=== PATIENT | female | born 1970 | race Hispanic/Latino ===

== ENCOUNTER 2016-10-26 08:16 | Emergency (ER) | payer MEDICAID, OTHER ==
[2016-10-26 08:16] VITALS: BMI 27.3
[2016-10-26 09:10] LABS: RBC URINE 1 /hpf (0-3); URINE BACTERIA RARE (<OCC); URINE BILIRUBIN NEGATIVE (NEGATIVE); URINE BLOOD NEGATIVE (NEGATIVE); URINE COLOR Yellow (YELLOW); URINE GLUCOSE (UA) NORMAL (Normal); URINE KETONE 1+ mg/dL (NEGATIVE); URINE LEUKOCYTE ESTERASE NEG Leu/uL (Negative); URINE PROTEIN NEGATIVE (NEGATIVE); URINE UROBILINOGEN NORMAL mg/dL (0.2-1.0); WBC URINE < 1 /hpf (0-5)
[2016-10-26] MEDS ORDERED: Sodium Chloride 0.9% 1,000 ML IV STA (10:06)
[2016-10-26] MEDS ORDERED: Sodium Chloride 0.9% 1,000 ML ONE (10:17)
[2016-10-26 10:39] LABS: BASO # 0.1 K/uL (0.0-0.2); BASO % 0.9 % (0.0-2.0); EOS # 0.1 K/uL (0.0-0.7); EOS % 1.2 % (0.0-4.0); HEMATOCRIT 40.5 % (34.0-47.0); LYMPH # 1.9 K/uL (1.0-4.3); LYMPH % 24.5 % (20.0-40.0); MEAN CELL VOLUME 87.6 fL (81.0-99.0); MEAN CORPUSCULAR HEMOGLOBIN 28.9 pg (27.0-31.0); MEAN PLATELET VOLUME 9.8 fL (7.2-11.7); MONO # 0.4 K/uL (0.0-0.8); MONO % 5.7 % (0.0-10.0); RED CELL DISTRIBUTION WIDTH 13.6 % (11.5-14.5); WHITE BLOOD COUNT 7.8 K/uL (4.8-10.8)
[2016-10-26 11:41] LABS: CHLORIDE 102 mmol/L (98-107); SODIUM 135 mmol/L (132-148)
[2016-10-26 11:43] LABS: BILIRUBIN,TOTAL 0.5 mg/dL (0.2-1.3); CARBON DIOXIDE 22 mmol/L (22-30); GFR AFRICAN-AMERICAN > 60
[2016-10-26 11:44] LABS: ALB/GLOB RATIO 1.6 (1.0-2.1); ALKALINE PHOSPHATASE 72 U/L (38-126); ALT/SGPT 29 U/L (9-52); AST/SGOT 17 U/L (14-36); BLOOD UREA NITROGEN 10 mg/dL (7-17); CALCIUM 8.3 mg/dl (8.6-10.4); GLUCOSE,RANDOM 85 mg/dL (65-105); TOTAL PROTEIN 6.7 g/dL (6.3-8.3)
--- NOTE | 2016-10-26 12:13 | US ---
Pelvic ultrasound History: Pelvic pain. Comparison: None available. Technique: Multi-echo multiplanar sequences were performed through pelvis utilizing transabdominal and transvaginal techniques. Findings: Uterus: 10.4 x 4.7 x 5.9 centimeters. Anteverted. Endometrium measures 7 millimeters. Cervix measures 3.2 centimeters. No free fluid in the pelvic cul-de-sac. Trace free fluid noted within the cervical canal. Right ovary: 3.6 x 2.5 x 3.6 centimeters. Normal flow. Hypoechoic cyst measuring 2.2 x 2.6 x 2.3 centimeters. Left ovary: 2.5 x 2.0 x 2.4 centimeters. Normal flow. status unknown. Impression: 2.4 centimeter right ovarian cyst. Trace free fluid noted within the cervical canal.
--- NOTE | 2016-10-26 12:21 | C.PDOC ---
History Of Present Illness 46 yr old female presents to the ER with complaints of low abdominal pain for the past 5 weeks. Patient states she has had multiple PID in the past and this feels similar, however the pain got worse last week. Patient states she also had some white discharge and went to go see her PMD who gave her Diflucan and recommended to follow up with SENIOR SQL SERVER DBA but failed to do so. Patient states the pain is getting worse, radiating to back and now feels weak. Patient denies fever, chest pain, SOB, nausea, vomiting, diarrhea, constipation or numbness. Time Seen by Provider: 10/26/16 08:40 Chief Complaint (Nursing): Abdominal Pain History Per: Patient History/Exam Limitations: no limitations Onset/Duration Of Symptoms: Days (5 weeks) Past Medical History Reviewed: Historical Data, Nursing Documentation, Vital Signs Vital Signs: Last Vital Signs Temp 98.3 F 10/26/16 16:50 Pulse 69 10/26/16 16:50 Resp 17 10/26/16 16:50 BP 114/83 10/26/16 16:50 Pulse Ox 100 10/26/16 18:44 - Medical History PMH: Anxiety, COPD, Post Traumatic Stress Disorder Family History: States: No Known Family Hx - Social History Hx Tobacco Use: No Hx Alcohol Use: Yes (''Occassionally'') Hx Substance Use: No (''Past abuse of Xanax'') - Immunization History Hx Tetanus Toxoid Vaccination: Yes Hx Influenza Vaccination: No Hx Pneumococcal Vaccination: No Review Of Systems Except As Marked, All Systems Reviewed And Found Negative. Constitutional: Positive for: Weakness. Negative for: Fever Cardiovascular: Negative for: Chest Pain Respiratory: Negative for: Shortness of Breath Gastrointestinal: Positive for: Abdominal Pain (Low abdominal pain ). Negative for: Nausea, Vomiting, Diarrhea, Constipation Genitourinary: Positive for: Vaginal Discharge (White) Musculoskeletal: Positive for: Back Pain (Radiating pain to the back) Neurological: Negative for: Numbness Physical Exam - Physical Exam Appears: Non-toxic, No Acute Distress Skin: Warm, Dry, No Rash Head: Atraumatic, Normacephalic Oral Mucosa: Moist Chest: Symmetrical, No Tenderness Cardiovascular: Rhythm Regular, No Murmur Respiratory: Normal Breath Sounds, No Rales, No Wheezing Gastrointestinal/Abdominal: Soft, Tenderness (Lower abdominal tenderness), Distention (Mildly ), No Guarding, No Rebound Pelvic: Normal Speculum Exam, No Vaginal Discharge, Other (No cervicitis. On manual exam, patient is tender. ) Extremity: Normal ROM, No Swelling Neurological/Psych: Oriented x3, Normal Speech, Normal Motor ED Course And Treatment - Laboratory Results Result Diagrams: 10/26/16 10:34 10/26/16 11:29 O2 Sat by Pulse Oximetry: 100 - CT Scan/US US - Pelvis/Transvaginal Other Rad Studies (CT/US): Read By Radiologist, Radiology Report Reviewed CT/US Interpretation: Pelvic ultrasound. History: Pelvic pain. Comparison: None available. Technique: Multi-echo multiplanar sequences were performed through pelvis utilizing transabdominal and transvaginal techniques. Findings: Uterus: 10.4 x 4.7 x 5.9 centimeters. Anteverted. Endometrium measures 7 millimeters. Cervix measures 3.2 centimeters. No free fluid in the pelvic cul- de-sac. Trace free fluid noted within the cervical canal. Right ovary: 3.6 x 2.5 x 3.6 centimeters. Normal flow. Hypoechoic cyst measuring 2.2 x 2.6 x 2.3 centimeters. Left ovary: 2.5 x 2.0 x 2.4 centimeters. Normal flow. status unknown. Impression: 2.4 centimeter right ovarian cyst. Trace free fluid noted within the cervical canal. CT - Abdomen & Pelvis Other Rad Studies (CT/US): Read By Radiologist, Radiology Report Reviewed CT/US Interpretation: PROCEDURE: CT Abdomen and Pelvis with oral and IV contrast. HISTORY: low abdominal pain. COMPARISON: None available. TECHNIQUE: Contiguous axial images of the abdomen and pelvis. Oral and IV contrast was administered. Coronal and Sagittal reformats generated and reviewed. Contrast dose: 100 cc Visipaque 320. Radiation dose: Total exam DLP = 1024.51 mGy-cm. This CT exam was performed using one or more of the following dose reduction techniques: Automated exposure control, adjustment of the mA and/or kV according to patient size, and/or use of iterative reconstruction technique. FINDINGS: LOWER THORAX: No visible consolidation, pleural effusion, or pneumothorax. LIVER: Unremarkable. GALLBLADDER AND BILE DUCTS: Unremarkable. PANCREAS: Unremarkable. SPLEEN: 8 mm probable splenule. Otherwise unremarkable. ADRENALS: Unremarkable. KIDNEYS AND URETERS: The kidneys enhance symmetrically. No hydronephrosis or obstructing renal calculus. BLADDER: Decompressed urinary bladder precludes adequate evaluation. REPRODUCTIVE: Uterus is present. 2.1 cm right adnexal cystic lesion, likely ovarian cyst. APPENDIX: The appendix appears within normal limits of caliber. No secondary signs of acute appendicitis. BOWEL: The stomach is nondistended. The bowel loops appear within normal limits of caliber without evidence of intestinal obstruction. Colonic wall thickening involving the distal transverse and left colon worrisome for colitis (i.e. infectious, inflammatory, ischemic). PERITONEUM: No significant free fluid. No definite free air. LYMPH NODES: No bulky lymphadenopathy identified. VASCULATURE: No aortic aneurysm. BONES: No acute osseous abnormality is detected. OTHER FINDINGS: Tiny fat containing umbilical hernia. IMPRESSION: Colonic wall thickening involving the distal transverse and left colon worrisome for colitis (i.e. infectious, inflammatory, ischemic). Correlate clinically. 2.1 cm right adnexal cystic lesion, likely ovarian cyst. Progress Note: casew as d/w Infectious ds who instructed to start patient on levaquin/Avelox plus Flagyl. Patient was d/c home with f/u with GI and OBGYN. Patient verbalized understanding and agreed with the plan of discharging. Medical Decision Making Medical Decision Making: PLAN: * US - Pelvis/Transvaginal * CT - Abd & Pelvis * CBC * Chlamydia GC * HCG * Urinalysis * Toradol IVP * Sodium Chloride IV Disposition - Disposition Disposition: HOME/ ROUTINE Disposition Time: 16:42 Condition: STABLE Additional Instructions: FOLLOW UP WITH PMD WITHIN 1-2 DAYS. RETURN TO ED IF FEEL WORSE. Prescriptions: metroNIDAZOLE [Flagyl] 500 mg PO TID #42 tab levoFLOXacin [Levaquin] 750 mg PO DAILY #14 tab Ibuprofen [Motrin Tab] 600 mg PO Q8 #30 tab Instructions: Abdominal Pain (ED) Forms: Work Excuse - Clinical Impression Clinical Impression: Abdominal pain - PA / STACKER AND SORTER OPERATOR / Resident Statement MD/DO has reviewed & agrees with the documentation as recorded. - Scribe Statement The provider has reviewed the documentation as recorded by the Scribe Fara Harris All medical record entries made by the Scribe were at my direction and personally dictated by me. I have reviewed the chart and agree that the record accurately reflects my personal performance of the history, physical exam, medical decision making, and the department course for this patient. I have also personally directed, reviewed, and agree with the discharge instructions and disposition.
[2016-10-26] MEDS ORDERED: Iohexol 240 (50 ml) PO STA (12:50)
[2016-10-26] MEDS ORDERED: Iohexol 240 (50 ml) ONE (13:05)
[2016-10-26 14:06] VITALS: PULSE 69; RESP 17
[2016-10-26] MEDS ORDERED: Iodixanol 320 MG/ML 100 ML BOTTLE IV ONE (14:44)
--- NOTE | 2016-10-26 16:23 | CT ---
PROCEDURE: CT Abdomen and Pelvis with oral and IV contrast. HISTORY: low abdominal pain COMPARISON: None available. TECHNIQUE: Contiguous axial images of the abdomen and pelvis. Oral and IV contrast was administered. Coronal and Sagittal reformats generated and reviewed. Contrast dose: 100 cc Visipaque 320 Radiation dose: Total exam DLP = 1024.51 mGy-cm. This CT exam was performed using one or more of the following dose reduction techniques: Automated exposure control, adjustment of the mA and/or kV according to patient size, and/or use of iterative reconstruction technique. FINDINGS: LOWER THORAX: No visible consolidation, pleural effusion, or pneumothorax. LIVER: Unremarkable. GALLBLADDER AND BILE DUCTS: Unremarkable. PANCREAS: Unremarkable. SPLEEN: 8 mm probable splenule. Otherwise unremarkable. ADRENALS: Unremarkable. KIDNEYS AND URETERS: The kidneys enhance symmetrically. No hydronephrosis or obstructing renal calculus. BLADDER: Decompressed urinary bladder precludes adequate evaluation. REPRODUCTIVE: Uterus is present. 2.1 cm right adnexal cystic lesion, likely ovarian cyst. APPENDIX: The appendix appears within normal limits of caliber. No secondary signs of acute appendicitis. BOWEL: The stomach is nondistended. The bowel loops appear within normal limits of caliber without evidence of intestinal obstruction. Colonic wall thickening involving the distal transverse and left colon worrisome for colitis (i.e. infectious, inflammatory, ischemic). PERITONEUM: No significant free fluid. No definite free air. LYMPH NODES: No bulky lymphadenopathy identified. VASCULATURE: No aortic aneurysm. BONES: No acute osseous abnormality is detected. OTHER FINDINGS: Tiny fat containing umbilical hernia. IMPRESSION: Colonic wall thickening involving the distal transverse and left colon worrisome for colitis (i.e. infectious, inflammatory, ischemic). Correlate clinically. 2.1 cm right adnexal cystic lesion, likely ovarian cyst.
[2016-10-26 16:46] VITALS: O2SAT 100
[2016-10-26 17:01] VITALS: BP 114/83; TEMP 98.3
== END 2016-10-26 17:14 | disposition home or self-care (01) ==
LOC: C.ER 08:16
DX: R10.30 Lower abdominal pain, unspecified (principal)
CPT/HCPCS: 74177; 76830; 76856; 80053; 81001; 83690; 84703; 85025; 87491; 87591; 96374; 99285; J1885; J7040; Q9966; Q9967

== ENCOUNTER 2017-01-21 09:43 | Emergency (ER) | payer MEDICAID, OTHER ==
[2017-01-21 09:43] VITALS: BMI 27.3
[2017-01-21 09:53] VITALS: TEMP 98.1
[2017-01-21] MEDS ORDERED: Sodium Chloride 0.9% 1,000 ML IV STA (10:10)
[2017-01-21] MEDS ORDERED: Sodium Chloride 0.9% 1,000 ML ONE (10:15)
[2017-01-21 10:34] LABS: BASO # 0.1 K/uL (0.0-0.2); BASO % 1.3 % (0.0-2.0); EOS # 0.1 K/uL (0.0-0.7); EOS % 1.4 % (0.0-4.0); LYMPH # 1.7 K/uL (1.0-4.3); MEAN CELL VOLUME 87.2 fL (81.0-99.0); MEAN CORPUSCULAR HEMOGLOBIN 28.5 pg (27.0-31.0); MEAN CORPUSCULAR HGB CONC 32.7 g/dL (33.0-37.0); MEAN PLATELET VOLUME 9.6 fL (7.2-11.7); MONO # 0.5 K/uL (0.0-0.8); MONO % 5.5 % (0.0-10.0); WHITE BLOOD COUNT 8.3 K/uL (4.8-10.8)
[2017-01-21 10:47] LABS: ALB/GLOB RATIO 1.3 (1.0-2.1); ALKALINE PHOSPHATASE 60 U/L (38-126); ALT/SGPT 29 U/L (9-52); AST/SGOT 14 U/L (14-36); BILIRUBIN,TOTAL 0.3 mg/dL (0.2-1.3); BLOOD UREA NITROGEN 11 mg/dL (7-17); CALCIUM 9.1 mg/dl (8.6-10.4); CARBON DIOXIDE 25 mmol/L (22-30); CHLORIDE 103 mmol/L (98-107); GFR AFRICAN-AMERICAN > 60; GLUCOSE,RANDOM 88 mg/dL (65-105); POTASSIUM 4.1 mmol/L (3.6-5.2); SODIUM 139 mmol/L (132-148); TOTAL PROTEIN 6.5 g/dL (6.3-8.3)
[2017-01-21 10:56] LABS: RBC URINE 1236 /hpf (0-3); URINE BILIRUBIN NEGATIVE (NEGATIVE); URINE BLOOD 3+ (NEGATIVE); URINE COLOR Amber (YELLOW); URINE GLUCOSE (UA) NORMAL (Normal); URINE KETONE NEGATIVE (NEGATIVE); URINE LEUKOCYTE ESTERASE NEG Leu/uL (Negative); URINE PROTEIN 2+ mg/dL (NEGATIVE); URINE UROBILINOGEN NORMAL mg/dL (0.2-1.0); WBC URINE 1 /hpf (0-5)
--- NOTE | 2017-01-21 11:13 | US ---
HISTORY: /bleeding, last menstrual period is reported 12/19/2016. COMPARISON: And pelvis CT examination with contrast 10/26/2016 and transvaginal pelvic ultrasonography on the same date. TECHNIQUE: Transabdominal and transvaginal pelvic ultrasound were performed for evaluation of and spontaneous vaginal bleeding. FINDINGS: UTERUS: Measures 10.1 x 4.7 x 5.4 cm. Normal in size and appearance. No fibroid or other mass lesion seen. ENDOMETRIUM: Measures 8.1 mm in diameter. No intrauterine gestation is identified. CERVIX: No cervical abnormality identified. RIGHT OVARY: Measures 2.3 x 1.3 x 2.3 cm. No solid mass. Normal flow. LEFT OVARY: Measures 2.2 x 1.1 x 2.0 cm. No solid mass. Normal flow. FREE FLUID: No significant free fluid noted. OTHER FINDINGS: None. IMPRESSION: No intrauterine gestation is appreciate this time. There is no definite pattern to indicate an ectopic gestation either. An ectopic gestation is not excluded however, given patient's last menstrual period suggesting an gestational age of 4 weeks 5 days, an early intrauterine gestation remains of a possibility, simply not visualize currently. Clinical and sonographic follow-up are advised.
[2017-01-21 11:57] VITALS: BP 112/73; PULSE 66; RESP 18; O2SAT 99
--- NOTE | 2017-01-21 12:33 | C.PDOC ---
History Of Present Illness 46 year old female presents to the ED with complaints of spotting beginning yesterday, and slight worsening today and pelvic cramping. Patient's LMP was December 19 and in early desirable . She is and had one . Patient denies fever, nausea, or vomiting. Time Seen by Provider: 01/21/17 09:59 Chief Complaint (Nursing): Female Genitourinary History Per: Patient History/Exam Limitations: no limitations Onset/Duration Of Symptoms: Days (1 day ) Current Symptoms Are (Timing): Still Present Quality Of Discomfort: Cramping Associated Symptoms: denies: Fever, Chills, Nausea, Vomiting, Diarrhea Recent travel outside of the [place]: No Abnormal Vaginal Bleeding: Yes Last Menstral Period: December 19 : 3 Para: 1 Miscarriage: 1 ( ) Past Medical History Reviewed: Historical Data, Nursing Documentation, Vital Signs Vital Signs: Last Vital Signs Temp 98.1 F 01/21/17 11:30 Pulse 66 01/21/17 11:30 Resp 18 01/21/17 11:30 BP 112/73 01/21/17 11:30 Pulse Ox 99 01/21/17 13:34 - Medical History PMH: Anxiety, COPD, Post Traumatic Stress Disorder Family History: States: Unknown Family Hx - Social History Hx Tobacco Use: No Hx Alcohol Use: Yes (''Occassionally'') Hx Substance Use: No (''Past abuse of Xanax'') - Immunization History Hx Tetanus Toxoid Vaccination: Yes Hx Influenza Vaccination: No Hx Pneumococcal Vaccination: No Review Of Systems Constitutional: Negative for: Fever, Chills Cardiovascular: Negative for: Chest Pain, Palpitations Respiratory: Negative for: Cough, Shortness of Breath Gastrointestinal: Negative for: Nausea, Vomiting, Diarrhea Genitourinary: Positive for: Vaginal Bleeding, Pelvic Pain (cramping ) Physical Exam - Physical Exam Appears: Non-toxic, No Acute Distress Skin: Warm, Dry Head: Atraumatic Eye(s): bilateral: Normal Inspection Oral Mucosa: Moist Neck: Supple Chest: Symmetrical, No Deformity Cardiovascular: Rhythm Regular Respiratory: Normal Breath Sounds, No Rales, No Rhonchi, No Wheezing Gastrointestinal/Abdominal: Soft, Tenderness (mild suprapubic tenderness ), No Distention, No Guarding, No Rebound Neurological/Psych: Oriented x3, Normal Speech, Normal Cognition ED Course And Treatment - Laboratory Results Result Diagrams: 01/21/17 10:30 01/21/17 10:30 O2 Sat by Pulse Oximetry: 99 (room air ) - CT Scan/US Pelvic US Other Rad Studies (CT/US): Read By Radiologist, Radiology Report Reviewed CT/US Interpretation: Accession No. : [id number]. Patient Name / ID : VITOR Smith / [id number]. Exam Date : 01/21/2017 10:31:16 ( Approved ). Study Comment : Sex / Age : F / 46Y. Creator : Bryan Jara MD. Dictator : Bryan Jara MD. Production Service Manager : Research Food Technologist : Bryan Jara MD. Approver2 : Report Date : 01/21/2017 11:11:50. My Comment : . HISTORY: /bleeding, last menstrual period is reported 12/19/2016. COMPARISON: And pelvis CT examination with contrast 10/26/2016 and transvaginal pelvic ultrasonography on the same date. TECHNIQUE: Transabdominal and transvaginal pelvic ultrasound were performed for evaluation of and spontaneous vaginal bleeding. FINDINGS: UTERUS: Measures 10.1 x 4.7 x 5.4 cm. Normal in size and appearance. No fibroid or other mass lesion seen. ENDOMETRIUM: Measures 8.1 mm in diameter. No intrauterine gestation is identified. CERVIX: No cervical abnormality identified. RIGHT OVARY: Measures 2.3 x 1.3 x 2.3 cm. No solid mass. Normal flow. LEFT OVARY: Measures 2.2 x 1.1 x 2.0 cm. No solid mass. Normal flow. FREE FLUID: No significant free fluid noted. OTHER FINDINGS: None. IMPRESSION: No intrauterine gestation is appreciate this time. There is no definite pattern to indicate an ectopic gestation either. An ectopic gestation is not excluded however, given patient's last menstrual period suggesting an gestational age of 4 weeks 5 days, an early intrauterine gestation remains of a possibility, simply not visualize currently. Clinical and sonographic follow-up are advised. - Physician Consult Information Time Consulting Physician Contacted: 10:00 Physician Contacted: Lupe Sawyer Outcome Of Conversation: Case discussed with Dr. Sawyer and US results were discussed. Dr. Sawyer agrees it was most likely early , still possibility og ectopic and suggested patient follow up in 48 hours for repeat Beta. Disposition - Disposition Disposition: HOME/ ROUTINE Disposition Time: 12:32 Condition: STABLE Additional Instructions: Follow up with PMD/OBGYN within 1-2 days. REturn to ED in 48 h to repeat Beta HCG. Return to ED immediately if feel worse. Instructions: First Trimester Vaginal Bleed (ED) Forms: Work/School/Gym Excuse, [employer] (Albanian) - Clinical Impression Clinical Impression: Vaginal bleeding during , antepartum - Scribe Statement The provider has reviewed the documentation as recorded by the Scribe Cindy Griffin All medical record entries made by the Scribe were at my direction and personally dictated by me. I have reviewed the chart and agree that the record accurately reflects my personal performance of the history, physical exam, medical decision making, and the department course for this patient. I have also personally directed, reviewed, and agree with the discharge instructions and disposition.
== END 2017-01-21 12:41 | disposition home or self-care (01) ==
LOC: C.ER 09:43
DX: O46.8X1 Other antepartum hemorrhage, first trimester (principal); Z3A.01 Less than 8 weeks gestation of pregnancy
CPT/HCPCS: 76830; 76856; 80053; 81001; 84702; 84703; 85025; 86850; 86900; 96360; 99284; J7040

== ENCOUNTER 2017-01-24 06:57 | Emergency (ER) | payer OTHER ==
[2017-01-24 06:57] VITALS: BMI 27.3
[2017-01-24 07:09] VITALS: TEMP 98.1; O2SAT 98
--- NOTE | 2017-01-24 07:54 | C.PDOC ---
History Of Present Illness Patient is a 46 year old female presents to ED for repeat Beta. Prior records reviewed, pt was seen here 3 days ago. test was positive but Beta was 11 at that time. Pelvic ultrasound from 01/21/17 showed no intrauterine gestation. Pt states she continues to have vaginal bleeding, and crampy lower abdominal pain. No nausea, vomiting, diarrhea, or fever. Time Seen by Provider: 01/24/17 07:36 Chief Complaint (Nursing): Abdominal Pain History Per: Patient History/Exam Limitations: no limitations Onset/Duration Of Symptoms: Days Current Symptoms Are (Timing): Still Present Location Of Pain/Discomfort: Suprapubic Radiation Of Pain To:: None Quality Of Discomfort: Cramping Associated Symptoms: denies: Loss Of Appetite, Back Pain, Chest Pain, Constipation, Urinary Symptoms Exacerbating Factors: None Alleviating Factors: None Recent travel outside of the [place]: No Additional History Per: Patient Abnormal Vaginal Bleeding: Yes Past Medical History Reviewed: Historical Data, Nursing Documentation, Vital Signs Vital Signs: Last Vital Signs Temp 98.1 F 01/24/17 07:05 Pulse 80 01/24/17 09:15 Resp 20 01/24/17 09:15 BP 129/81 01/24/17 09:15 Pulse Ox 98 01/24/17 09:16 - Medical History PMH: Anxiety, COPD, Post Traumatic Stress Disorder Family History: States: Unknown Family Hx - Social History Hx Tobacco Use: No Hx Alcohol Use: No (''Occassionally'') Hx Substance Use: No (''Past abuse of Xanax'') - Immunization History Hx Tetanus Toxoid Vaccination: Yes Hx Influenza Vaccination: No Hx Pneumococcal Vaccination: No Review Of Systems Except As Marked, All Systems Reviewed And Found Negative. Constitutional: Negative for: Fever, Chills Gastrointestinal: Positive for: Abdominal Pain. Negative for: Nausea, Vomiting , Diarrhea, Constipation Genitourinary: Positive for: Vaginal Bleeding. Negative for: Dysuria Musculoskeletal: Negative for: Back Pain Physical Exam - Physical Exam Appears: Non-toxic, No Acute Distress Skin: Normal Color, Warm, Dry Head: Atraumatic, Normacephalic Oral Mucosa: Moist Cardiovascular: Rhythm Regular, No Murmur Respiratory: Normal Breath Sounds, No Rales, No Rhonchi, No Wheezing Gastrointestinal/Abdominal: Soft, Tenderness (suprapubic), No Guarding, No Rebound Extremity: Normal ROM Neurological/Psych: Oriented x3, Normal Speech ED Course And Treatment O2 Sat by Pulse Oximetry: 98 (on RA) Pulse Ox Interpretation: Normal Progress Note: Beta-HCG ordered and reviewed. Beta Hcg 5. On re-evaluation abdomen soft non-tender Reassessment Condition: Unchanged Medical Decision Making Medical Decision Making: Patient advised to follow up with CURING FINISHER or clinic for further evaluation Impression DUB vs Miscarrage Disposition - Disposition Referrals: [facility] [Outside] [facility] [Outside] Disposition: HOME/ ROUTINE Disposition Time: 09:20 Condition: STABLE Additional Instructions: Return to ED if any increase symptoms Follow up with PMD or clinic for further evaluation Instructions: Dysfunctional Uterine Bleeding (ED) Forms: [facility] (Georgian), Work Excuse - POA Present On Arrival: None - Clinical Impression Clinical Impression: DUB (dysfunctional uterine bleeding) - PA / MANAGER NURSING / Resident Statement MD/DO has reviewed & agrees with the documentation as recorded. - Scribe Statement The provider has reviewed the documentation as recorded by the Scribobed Sawyer All medical record entries made by the Nereidaibobed were at my direction and personally dictated by me. I have reviewed the chart and agree that the record accurately reflects my personal performance of the history, physical exam, medical decision making, and the department course for this patient. I have also personally directed, reviewed, and agree with the discharge instructions and disposition.
[2017-01-24 09:25] VITALS: BP 129/81; PULSE 80; RESP 20
== END 2017-01-24 09:27 | disposition home or self-care (01) ==
LOC: C.ER 06:57
DX: N93.8 Other specified abnormal uterine and vaginal bleeding (principal)

== ENCOUNTER 2017-04-05 10:41 | Emergency (ER) | payer MEDICAID, OTHER ==
[2017-04-05 10:41] VITALS: BMI 27.3
[2017-04-05 11:03] VITALS: TEMP 97.8
[2017-04-05 12:29] LABS: RBC URINE < 1 /hpf (0-3); URINE BILIRUBIN NEGATIVE (NEGATIVE); URINE BLOOD NEGATIVE (NEGATIVE); URINE COLOR Yellow (YELLOW); URINE GLUCOSE (UA) NORMAL (Normal); URINE KETONE NEGATIVE (NEGATIVE); URINE LEUKOCYTE ESTERASE NEG Leu/uL (Negative); URINE PROTEIN NEGATIVE (NEGATIVE); URINE UROBILINOGEN NORMAL mg/dL (0.2-1.0)
[2017-04-05] MEDS ORDERED: Sodium Chloride 0.9% 1,000 ML IV ONE (13:05)
[2017-04-05 13:08] LABS: BASO % 0.5 % (0.0-2.0); EOS # 0.1 K/uL (0.0-0.7); EOS % 1.2 % (0.0-4.0); HEMATOCRIT 39.7 % (34.0-47.0); LYMPH # 2.2 K/uL (1.0-4.3); LYMPH % 24.7 % (20.0-40.0); MEAN CELL VOLUME 86.4 fL (81.0-99.0); MEAN CORPUSCULAR HEMOGLOBIN 29.1 pg (27.0-31.0); MEAN CORPUSCULAR HGB CONC 33.7 g/dL (33.0-37.0); MEAN PLATELET VOLUME 9.5 fL (7.2-11.7); MONO # 0.6 K/uL (0.0-0.8); MONO % 6.4 % (0.0-10.0); RED CELL DISTRIBUTION WIDTH 13.5 % (11.5-14.5); WHITE BLOOD COUNT 8.9 K/uL (4.8-10.8)
--- NOTE | 2017-04-05 13:09 | C.PDOC ---
History Of Present Illness 46 year old female, whose PMHx includes colitis, presents to the ED for evaluation of cramping abdominal pain which began around 4 days ago. Patient states her pain occasionally radiates into her back, is associated with diarrhea (around 6 episodes of loose diarrhea per day), and hot/cold flashes. 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 Patient denies fever, chills, nausea, vomiting. Time Seen by Provider: 04/05/17 12:05 Chief Complaint (Nursing): Abdominal Pain History Per: Patient History/Exam Limitations: no limitations Current Symptoms Are (Timing): Still Present Quality Of Discomfort: Cramping, "Pain" Associated Symptoms: Diarrhea. denies: Nausea, Vomiting Past Medical History Reviewed: Historical Data, Nursing Documentation, Vital Signs Vital Signs: Last Vital Signs Temp 97.8 F 04/05/17 10:58 Pulse 60 04/05/17 14:58 Resp 18 04/05/17 14:58 BP 115/75 04/05/17 14:58 Pulse Ox 98 04/05/17 15:04 - Medical History PMH: Anxiety, COPD, Post Traumatic Stress Disorder Surgical History: No Surg Hx Family History: States: Unknown Family Hx - Social History Hx Tobacco Use: No Hx Alcohol Use: No (''Occassionally'') Hx Substance Use: No (''Past abuse of Xanax'') - Immunization History Hx Tetanus Toxoid Vaccination: Yes Hx Influenza Vaccination: No Hx Pneumococcal Vaccination: No Physical Exam - Physical Exam Appears: Non-toxic, No Acute Distress Skin: Normal Color, Warm, Dry Eye(s): bilateral: Normal Inspection Oral Mucosa: Moist Neck: Supple Chest: Symmetrical, No Deformity, No Tenderness Cardiovascular: Rhythm Regular, No Murmur Respiratory: Normal Breath Sounds, No Rales, No Rhonchi, No Wheezing Gastrointestinal/Abdominal: No Soft (firm ), Tenderness (lower abdomen), Distention, No Guarding, No Rebound Back: Normal Inspection, No Vertebral Tenderness, No Paraspinal Tenderness Pelvic: Normal External Exam Extremity: Normal ROM, Capillary Refill (less than 2 seconds ) Neurological/Psych: Oriented x3, Normal Speech, Normal Cognition Gait: Steady ED Course And Treatment - Laboratory Results Result Diagrams: 04/05/17 13:02 04/05/17 13:02 O2 Sat by Pulse Oximetry: 98 (on RA) Pulse Ox Interpretation: Normal - Other Rad Abdomen Obstructive Series XR X-Ray: Interpreted by Me, Viewed By Me, Read By Radiologist Interpretation: PROCEDURE: Radiographs of the chest and abdomen (obstructive series). HISTORY: abd pain. COMPARISON: CT abdomen and pelvis with contrast performed 10/26/16. TECHNIQUE: AP radiograph of the chest, with upright and supine radiographs of the abdomen. FINDINGS: Examination limited by habitus. CHEST: Heart size appears within normal limits. No focal consolidation, significant pleural effusion, or definite pneumothorax identified.Please note that chest x-ray has limited sensitivity for the detection of pulmonary masses. ABDOMEN AND PELVIS: Nonobstructive bowel gas pattern. No definite free air. Mild constipation. No acute osseous abnormality is detected. IMPRESSION: Mild constipation. - CT Scan/US CT A/P Other Rad Studies (CT/US): Interpreted By Me, Read By Radiologist, Radiology Report Reviewed CT/US Interpretation: PROCEDURE: CT Abdomen and Pelvis with contrast. HISTORY : lower abd pain, distended, diarrhea. COMPARISON: Obstructive series performed 10/26/16, pelvic ultrasound performed 01/21/17. TECHNIQUE: Contrast dose : 100 cc Visipaque 320. Radiation dose: Total exam DLP = 959.84 MGy-cm. This CT exam was performed using one or more of the following dose reduction techniques: Automated exposure control, adjustment of the mA and/or kV according to patient size, and/or use of iterative reconstruction technique. FINDINGS: LOWER THORAX: No visible consolidation, pleural effusion, or pneumothorax. LIVER: Unremarkable. GALLBLADDER AND BILE DUCTS: Unremarkable. PANCREAS: Unremarkable. SPLEEN: Unremarkable. ADRENALS: Unremarkable. KIDNEYS AND URETERS: Kidneys enhance symmetrically. No hydronephrosis or obstructing calculus identified. VASCULATURE: No aortic aneurysm. BOWEL: Stomach is nondistended. Lack of oral contrast limits evaluation for bowel pathology. Bowel loops appear within normal limits of caliber without evidence of obstruction. APPENDIX: The appendix appears within normal limits of caliber. No secondary signs of acute appendicitis. PERITONEUM: No significant free fluid. No definite free air. LYMPH NODES: No bulky adenopathy identified. BLADDER: Decompressed urinary bladder limits evaluation. REPRODUCTIVE: Uterus is present. The cervix appears enlarged/ bulky ; suggest further evaluation with pelvic ultrasound and Pap smear. BONES : No acute osseous abnormality is detected. OTHER FINDINGS: None. IMPRESSION : Mild constipation. The cervix appears enlarged/ bulky ; suggest further evaluation with pelvic exam and Pap smear. Medical Decision Making Medical Decision Making: Bloodwork, urinalysis, CT A/P, Obstructive Series Abdomen. Pepcid IVP, Toradol IVP, Zofran IVP, and IV Fluids administered. Disposition - Disposition Referrals: [facility] [Outside] Disposition: HOME/ ROUTINE Disposition Time: 15:22 Condition: GOOD Additional Instructions: Follow up with the medical doctor within 1-2 days, Return if worsened. Prescriptions: Ibuprofen [Motrin] 600 mg PO TID #21 tab Polyethylene Glycol 3350 [Miralax] 17 gm PO DAILY PRN #100 ml PRN Reason: Constipation Instructions: Constipation (DC), High Fiber Diet (ED) Forms: [employer] (Azerbaijani) - Clinical Impression Clinical Impression: Abdominal pain, Constipation - PA / MESSAGE BROKER DEVELOPER / Resident Statement MD/DO has reviewed & agrees with the documentation as recorded. - Scribe Statement The provider has reviewed the documentation as recorded by the Scribe (Donna Sawyer) All medical record entries made by the Scribe were at my direction and personally dictated by me. I have reviewed the chart and agree that the record accurately reflects my personal performance of the history, physical exam, medical decision making, and the department course for this patient. I have also personally directed, reviewed, and agree with the discharge instructions and disposition.
[2017-04-05] MEDS ORDERED: Sodium Chloride 0.9% 1,000 ML ONE (13:14)
[2017-04-05 13:22] LABS: ALKALINE PHOSPHATASE 69 U/L (38-126); ALT/SGPT 48 U/L (9-52); BILIRUBIN,TOTAL 0.6 mg/dL (0.2-1.3); BLOOD UREA NITROGEN 12 mg/dL (7-17); CARBON DIOXIDE 23 mmol/L (22-30); CHLORIDE 99 mmol/L (98-107); GFR AFRICAN-AMERICAN > 60; GLUCOSE,RANDOM 77 mg/dL (65-105); POTASSIUM 3.8 mmol/L (3.6-5.2); SODIUM 134 mmol/L (132-148); TOTAL PROTEIN 8.3 g/dL (6.3-8.3)
[2017-04-05 13:24] LABS: ALB/GLOB RATIO 1.2 (1.0-2.1); AST/SGOT 21 U/L (14-36)
[2017-04-05] MEDS ORDERED: Iodixanol 320 MG/ML 100 ML BOTTLE IV ONE (13:58)
--- NOTE | 2017-04-05 14:26 | RAD ---
PROCEDURE: Radiographs of the chest and abdomen (obstructive series) HISTORY: abd pain COMPARISON: CT abdomen and pelvis with contrast performed 10/26/16 TECHNIQUE: AP radiograph of the chest, with upright and supine radiographs of the abdomen. FINDINGS: Examination limited by habitus. CHEST: Heart size appears within normal limits. No focal consolidation, significant pleural effusion, or definite pneumothorax identified.Please note that chest x-ray has limited sensitivity for the detection of pulmonary masses. ABDOMEN AND PELVIS: Nonobstructive bowel gas pattern. No definite free air. Mild constipation. No acute osseous abnormality is detected. IMPRESSION: Mild constipation.
--- NOTE | 2017-04-05 14:39 | CT ---
PROCEDURE: CT Abdomen and Pelvis with contrast HISTORY: lower abd pain, distended, diarrhea COMPARISON: Obstructive series performed 10/26/16, pelvic ultrasound performed 01/21/17 TECHNIQUE: Contrast dose: 100 cc Visipaque 320 Radiation dose: Total exam DLP = 959.84 MGy-cm. This CT exam was performed using one or more of the following dose reduction techniques: Automated exposure control, adjustment of the mA and/or kV according to patient size, and/or use of iterative reconstruction technique. FINDINGS: LOWER THORAX: No visible consolidation, pleural effusion, or pneumothorax. LIVER: Unremarkable. GALLBLADDER AND BILE DUCTS: Unremarkable. PANCREAS: Unremarkable. SPLEEN: Unremarkable. ADRENALS: Unremarkable. KIDNEYS AND URETERS: Kidneys enhance symmetrically. No hydronephrosis or obstructing calculus identified. VASCULATURE: No aortic aneurysm. BOWEL: Stomach is nondistended. Lack of oral contrast limits evaluation for bowel pathology. Bowel loops appear within normal limits of caliber without evidence of obstruction. APPENDIX: The appendix appears within normal limits of caliber. No secondary signs of acute appendicitis. PERITONEUM: No significant free fluid. No definite free air. LYMPH NODES: No bulky adenopathy identified. BLADDER: Decompressed urinary bladder limits evaluation. REPRODUCTIVE: Uterus is present. The cervix appears enlarged/ bulky ; suggest further evaluation with pelvic ultrasound and Pap smear. BONES: No acute osseous abnormality is detected. OTHER FINDINGS: None. IMPRESSION: Mild constipation. The cervix appears enlarged/ bulky ; suggest further evaluation with pelvic exam and Pap smear.
[2017-04-05 14:58] VITALS: BP 115/75; PULSE 60; RESP 18
[2017-04-05 15:02] VITALS: O2SAT 98
== END 2017-04-05 15:43 | disposition home or self-care (01) ==
LOC: C.ER 10:41
DX: K59.00 Constipation, unspecified (principal); R10.9 Unspecified abdominal pain
CPT/HCPCS: 74022; 74177; 80053; 81001; 83690; 84703; 85025; 96361; 96374; 96375; 99285; J1885; J2405; J7040; Q9967

== ENCOUNTER 2017-09-15 08:17 | Emergency (ER) | payer MEDICAID, OTHER ==
[2017-09-15 08:28] VITALS: BMI 33.4
[2017-09-15 08:29] VITALS: BP 130/87; PULSE 84; RESP 18; TEMP 97.5; O2SAT 96
[2017-09-15 09:02] LABS: SQUAMOUS EPITHIAL 7 /hpf (0-5); URINE BILIRUBIN NEGATIVE (NEGATIVE); URINE BLOOD NEGATIVE (NEGATIVE); URINE CLARITY Hazy (Clear); URINE COLOR Yellow (YELLOW); URINE GLUCOSE (UA) NORMAL (Normal); URINE LEUKOCYTE ESTERASE NEG Leu/uL (Negative); URINE PROTEIN NEGATIVE (NEGATIVE); URINE UROBILINOGEN NORMAL mg/dL (0.2-1.0)
[2017-09-15 09:08] LABS: HCG,QUALITATIVE URINE NEGATIVE (NEGATIVE)
--- NOTE | 2017-09-15 09:14 | C.PDOC ---
History Of Present Illness 47 year old female presents to the emergency department with complaints of pelvic discomfort and vaginal itching with discharge persisting for the past two weeks. Patient states that she has a previous history of pelvic inflammatory disease, and she denies fever, nausea, vomiting, diarrhea, and vaginal bleeding. Time Seen by Provider: 09/15/17 08:17 Chief Complaint (Nursing): Female Genitourinary History Per: Patient Onset/Duration Of Symptoms: Other (2 weeks) Current Symptoms Are (Timing): Still Present Associated Symptoms: denies: Fever, Nausea, Vomiting, Diarrhea Past Medical History Reviewed: Historical Data, Nursing Documentation, Vital Signs Vital Signs: Last Vital Signs Temp 97.5 F L 09/15/17 08:28 Pulse 84 09/15/17 08:28 Resp 18 09/15/17 08:28 BP 130/87 09/15/17 08:28 Pulse Ox 96 09/15/17 11:04 - Medical History PMH: Anxiety, COPD, Post Traumatic Stress Disorder Surgical History: No Surg Hx Family History: States: No Known Family Hx - Social History Hx Tobacco Use: No Hx Alcohol Use: No (''Occassionally'') Hx Substance Use: No (''Past abuse of Xanax'') - Immunization History Hx Tetanus Toxoid Vaccination: No Hx Influenza Vaccination: No Hx Pneumococcal Vaccination: No Review Of Systems Except As Marked, All Systems Reviewed And Found Negative. Genitourinary: Positive for: Vaginal Discharge, Pelvic Pain (discomfort), Other (vaginal itch) Physical Exam - Physical Exam Appears: Non-toxic, No Acute Distress, Other (comfortable) Cardiovascular: Rhythm Regular Respiratory: Normal Breath Sounds Gastrointestinal/Abdominal: Normal Exam, Soft, No Tenderness Pelvic: No Vaginal Bleeding, Vaginal Discharge (thick, white), No Cervical Motion Tenderness, No Adnexal Tenderness, No Other (lesions) ED Course And Treatment O2 Sat by Pulse Oximetry: 96 (RA) Pulse Ox Interpretation: Normal Progress Note: Plan: Urinalysis results are negative. Patient prescribed antibiotics and is clear for discharge home. Disposition Counseled Patient/Family Regarding: Diagnosis, Need For Followup, Rx Given - Disposition Referrals: Elias Zaragoza MD [Staff Provider] - Disposition: HOME/ ROUTINE Disposition Time: 09:15 Condition: STABLE Additional Instructions: FOLLOW UP WITH YOUR GRANTS DIRECTOR SCHEDULED THIS WEEK USE ANTIBIOTICS UNIL FINISHED RETURN TO ER IF SYMPTOMS WORSEN Prescriptions: levoFLOXacin [Levaquin] 500 mg PO BID #14 tab metroNIDAZOLE [Flagyl] 500 mg PO BID #14 tab Instructions: Vaginal Discharge in Adults Forms: [facility] (Vincentian) Print Language: COMORAN - POA Present On Arrival: None - Clinical Impression Clinical Impression: Vaginal discharge, Cervicitis - Scribe Statement The provider has reviewed the documentation as recorded by the Scribe (Eagle Santiago) Provider Attestation: All medical record entries made by the Scribe were at my direction and personally dictated by me. I have reviewed the chart and agree that the record accurately reflects my personal performance of the history, physical exam, medical decision making, and the department course for this patient. I have also personally directed, reviewed, and agree with the discharge instructions and disposition.
== END 2017-09-15 09:19 | disposition home or self-care (01) ==
LOC: C.ER 08:17
DX: N72 Inflammatory disease of cervix uteri (principal); N89.8 Other specified noninflammatory disorders of vagina

== ENCOUNTER 2017-12-13 16:11 | Observation (INO) | payer OTHER ==
--- NOTE | 2017-12-13 17:03 | RAD ---
Date of service: 12/13/2017 HISTORY: chest pain COMPARISON: 06/09/2014 TECHNIQUE: Chest PA and lateral FINDINGS: LUNGS: No active pulmonary disease. PLEURA: No significant pleural effusion identified. No pneumothorax apparent. CARDIOVASCULAR: Normal. OSSEOUS STRUCTURES: No significant abnormalities. VISUALIZED UPPER ABDOMEN: Normal. OTHER FINDINGS: None. IMPRESSION: No active disease.
--- NOTE | 2017-12-13 17:09 | C.PDOC ---
History Of Present Illness 47 -year-old female with PMHx of COPD and depression presents to the ED with chest tightness since yesterday. Patient also reports feeling stressed out. Patient states she received an injection in her right knee on 12/12/17. She also complains of paresthesias going down to her hands. Time Seen by Provider: 12/13/17 16:30 Chief Complaint (Nursing): Chest Pain History Per: Patient History/Exam Limitations: no limitations Onset/Duration Of Symptoms: Days Current Symptoms Are (Timing): Still Present (intermittent) Alleviating Factors: None Recent travel outside of the [place]: No Past Medical History Vital Signs: Last Vital Signs Temp 98 F 12/13/17 16:21 Pulse 69 12/13/17 18:35 Resp 12 12/13/17 18:35 BP 118/80 12/13/17 18:35 Pulse Ox 98 12/13/17 18:35 - Medical History PMH: Anxiety, Arthritis, COPD, Post Traumatic Stress Disorder, Pulmonary Embolism Other PMH: Endometriosis Other Surgeries: Endometriosis removed Family History: States: Unknown Family Hx - Social History Hx Tobacco Use: No Hx Alcohol Use: No (''Occassionally'') Hx Substance Use: No (''Past abuse of Xanax'') - Immunization History Hx Tetanus Toxoid Vaccination: No Hx Influenza Vaccination: No Hx Pneumococcal Vaccination: No Review Of Systems Except As Marked, All Systems Reviewed And Found Negative. Constitutional: Negative for: Fever Cardiovascular: Positive for: Chest Pain Respiratory: Negative for: Cough, Shortness of Breath Gastrointestinal: Negative for: Nausea, Vomiting Neurological: Positive for: Other (paresthesia). Negative for: Weakness, Headache, Dizziness Physical Exam - Physical Exam Appears: Well, Non-toxic, No Acute Distress Skin: Normal Color, Warm, Dry Head: Atraumatic, Normacephalic Eye(s): bilateral: PERRL, EOMI Nose: Normal Oral Mucosa: Moist Throat: Normal Neck: Normal, Normal ROM, Supple Chest: Symmetrical, No Tenderness Cardiovascular: Rhythm Regular Respiratory: Normal Breath Sounds, No Rales, No Rhonchi, No Wheezing Gastrointestinal/Abdominal: Normal Exam, Soft, No Tenderness, No Guarding Extremity: Bilateral: Normal Color And Temperature, Normal ROM Neurological/Psych: Oriented x3, Normal Speech ED Course And Treatment - Laboratory Results Result Diagrams: 12/13/17 17:17 12/13/17 17:17 O2 Sat by Pulse Oximetry: 97 (RA) Pulse Ox Interpretation: Normal Medical Decision Making Medical Decision Making: Impression: 47 -year-old female with chest tightness -atypical pain Plan: --EKG --CMP -- Troponin I --CBC --Prothrombin Time --Partial Thromboplastin Time --Chest X-Ray --UA --Urine HCG - Ativan 0.5 mg IV case discussed with dr higuera, accepts for obs. asa given. pt reports extensive family hx, uncomfortable going home. Disposition - Disposition Disposition: HOME/ ROUTINE Disposition Time: 06:00 Condition: STABLE - Clinical Impression Clinical Impression: Chest pain - Scribe Statement The provider has reviewed the documentation as recorded by the Scribe (Halle Arredondo) Provider Attestation: All medical record entries made by the Scribe were at my direction and personally dictated by me. I have reviewed the chart and agree that the record accurately reflects my personal performance of the history, physical exam, medical decision making, and the department course for this patient. I have also personally directed, reviewed, and agree with the discharge instructions and disposition. Decision To Admit - Pt Status Changed To: Hospital Disposition Of: Observation - . Bed Request Type: Telemetry Admitting Physician: Heather Higuera Patient Diagnosis: Chest pain
[2017-12-13 17:26] LABS: BASO % 0.3 % (0.0-2.0); EOS # 0.1 K/uL (0.0-0.7); EOS % 0.9 % (0.0-4.0); LYMPH # 3.2 K/uL (1.0-4.3); LYMPH % 28.4 % (20.0-40.0); MEAN CELL VOLUME 88.7 fL (81.0-99.0); MEAN CORPUSCULAR HEMOGLOBIN 30.1 pg (27.0-31.0); MEAN CORPUSCULAR HGB CONC 33.9 g/dL (33.0-37.0); MEAN PLATELET VOLUME 9.7 fL (7.2-11.7); MONO # 0.8 K/uL (0.0-0.8); MONO % 7.3 % (0.0-10.0); NEUT # 7.1 K/uL (1.8-7.0); NEUT % 63.1 % (50.0-75.0); RBC 4.32 Mil/uL (3.80-5.20); RED CELL DISTRIBUTION WIDTH 13.3 % (11.5-14.5); WHITE BLOOD COUNT 11.3 K/uL (4.8-10.8)
[2017-12-13 17:28] LABS: HCG,QUALITATIVE URINE NEGATIVE (NEGATIVE)
[2017-12-13 17:30] LABS: SQUAMOUS EPITHIAL 26 /hpf (0-5); URINE BACTERIA RARE (<OCC); URINE BILIRUBIN NEGATIVE (NEGATIVE); URINE BLOOD NEGATIVE (NEGATIVE); URINE CALCIUM OXALATE CRYSTALS RARE /hpf (<OCC); URINE CLARITY Hazy (Clear); URINE COLOR Yellow (YELLOW); URINE GLUCOSE (UA) NORMAL (Normal); URINE LEUKOCYTE ESTERASE NEG Leu/uL (Negative); URINE PROTEIN NEGATIVE (NEGATIVE); URINE UROBILINOGEN NORMAL mg/dL (0.2-1.0)
[2017-12-13 17:33] LABS: INR 1.1; PROTHROMBIN TIME 11.8 SECONDS (9.7-12.2)
[2017-12-13 17:47] LABS: ALB/GLOB RATIO 1.7 (1.0-2.1); ALBUMIN 4.4 g/dL (3.5-5.0); ALT/SGPT 25 U/L (9-52); AST/SGOT 18 U/L (14-36); BLOOD UREA NITROGEN 16 mg/dL (7-17); CALCIUM 9.5 mg/dl (8.6-10.4); GFR AFRICAN-AMERICAN > 60; GFR NON-AFRICAN AMERICAN > 60
[2017-12-14 01:10] LABS: CK-MB 0.36 ng/mL (0.0-3.38)
--- NOTE | 2017-12-14 09:04 | CP.PCM.PN ---
Subjective - Date & Time of Evaluation Date of Evaluation: 12/14/17 Time of Evaluation: 09:03 - Subjective Subjective: Progress Note Dr. Dianne Sawyer Patient seen and examined at bedside. Per nursing no acute events occurred overnight. Patient still does reports some chest tightness that is located mid- sternally. The patient does state she has alot of stress in her life currently. She reports having to work longer hours at her job due to a loss in workers and her son not wanting to see her any longer. She reports crying daily for the past couple of months. She denies any dizziness, changes in vision, change 47 year old female with a past medical history of depression who came to the emergency room after reporting chest tightness. The patient also reported some numbness and tingling running down her upper extremities. Past medical history: depression Surgical history: Allergies: codeine, doxycycline, morphine, Penicillin, tetracycline Social history: Objective - Vital Signs/Intake and Output Vital Signs (last 24 hours): Temp Pulse Resp BP Pulse Ox 97.4 F L 69 20 106/72 97 12/14/17 08:46 12/14/17 08:46 12/14/17 08:46 12/14/17 08:46 12/14/17 08:46 - Medications Medications: Current Medications Aspirin (Aspirin) 325 mg PO DAILY [place] Enoxaparin Sodium (Lovenox) 40 mg SC DAILY [place] Pantoprazole Sodium (Protonix Ec Tab) 40 mg PO DAILY [place] Paroxetine HCl (Paxil) 40 mg PO DAILY [place] Trazodone HCl (Desyrel) 200 mg PO DAILY [facility] - Labs Labs: 12/13/17 17:17 12/13/17 17:17 PT 11.8 SECONDS (9.7-12.2) 12/13/17 17:17 INR 1.1 12/13/17 17:17 APTT 31 SECONDS (21-34) 12/13/17 17:17 Assessment and Plan - Assessment and Plan (Free Text) Assessment: 47 year old female with a past medical history of COPD and depression who came to the emergency room after reporting chest tightness. Plan: 1.Chest pain r/o acs -EKG: Normal sinus rhythm @70bpm -Troponins (-)x3 -Cardiology (Dr. Nelson) consuled. Help appreciated. -Lipid panel ordered. Will f/u with results. -TSH ordered. Will f/u with results. -Aspirin 325mg PO Daily 2. Insomnia -Trazdone 200 mg PO HS 3. Anxiety -Xanax 1.5mg PO HS 4. Depression -Patient reports having multiple stressors in her life including her son not wanting to see her and increased pressure at work. -Paxil 40mg PO Daily PPX Lovenox 40mg SC Daily Protonix 40mg IVP Daily Heart Healthy diet Dispo: Awaiting Cardiology recommendations. Plan and management discussed with Dr. Dianne Sawyer. Chip Velásquez, PGY-2
[2017-12-14] MEDS: Enoxaparin 40 mg Syringe SC SCH (09:42)
[2017-12-14] MEDS: Pantoprazole 40 mg EC Tab PO SCH (09:43)
[2017-12-14 11:04] LABS: BASO % 0.3 % (0.0-2.0); EOS # 0.1 K/uL (0.0-0.7); EOS % 1.9 % (0.0-4.0); HEMOGLOBIN 13.4 g/dL (11.0-16.0); LYMPH # 2.1 K/uL (1.0-4.3); LYMPH % 31.1 % (20.0-40.0); MEAN CELL VOLUME 89.1 fL (81.0-99.0); MEAN CORPUSCULAR HEMOGLOBIN 30.3 pg (27.0-31.0); MONO # 0.5 K/uL (0.0-0.8); MONO % 6.8 % (0.0-10.0); NEUT % 59.9 % (50.0-75.0); RBC 4.41 Mil/uL (3.80-5.20); RED CELL DISTRIBUTION WIDTH 13.7 % (11.5-14.5); WHITE BLOOD COUNT 6.6 K/uL (4.8-10.8)
[2017-12-14 11:56] LABS: ALB/GLOB RATIO 1.6 (1.0-2.1); ALBUMIN 4.1 g/dL (3.5-5.0); ALT/SGPT 31 U/L (9-52); AST/SGOT 16 U/L (14-36); BLOOD UREA NITROGEN 14 mg/dL (7-17); GFR AFRICAN-AMERICAN > 60; GFR NON-AFRICAN AMERICAN > 60
[2017-12-14 12:10] LABS: CK-MB < 0.22 ng/mL (0.0-3.38)
--- NOTE | 2017-12-14 12:20 | CARD ---
APPROVED REPORT Date of service: 12/13/2017 EKG Measurement Heart [id number] <Conclusion> Normal sinus rhythm Normal ECG
[2017-12-14 13:41] LABS: HDL CHOLESTEROL 39 mg/dL (30-70)
[2017-12-14 13:53] LABS: LDL CHOLESTEROL 100 mg/dL (0-129)
--- NOTE | 2017-12-14 16:38 | RAD ---
Date of service: 12/14/2017 PROCEDURE: Cervical Spine Radiographs. HISTORY: Pain. COMPARISON: None. FINDINGS: BONES: Straightening of the normal lordosis. No fracture. Dens Intact. DISC SPACES: Normal. SOFT TISSUES: Normal. No prevertebral soft tissue swelling. OTHER FINDINGS: None. IMPRESSION: Straightening of the normal lordosis may be secondary to positioning/ spasm. No acute fracture
--- NOTE | 2017-12-14 18:57 | CP.PCM.HP ---
History of Present Illness - History of Present Illness History of Present Illness: 47 year old female with a past medical history of depression who came to the emergency room after reporting chest tightness. The patient also reported some numbness and tingling running down her upper extremities. Patient still does reports some chest tightness that is located mid-sternally. The patient does state she has alot of stress in her life currently. She reports having to work longer hours at her job due to a loss in workers and her son not wanting to see her any longer. She reports crying daily for the past couple of months. She denies any dizziness, changes in vision Past medical history: depression Surgical history: Allergies: codeine, doxycycline, morphine, Penicillin, tetracycline Social history: Present on Admission - Present on Admission Any Indicators Present on Admission: No Past Patient History - Past Social History Smoking Status: Never Smoked - CARDIAC Hx Cardiac Disorders: No - PULMONARY Hx Chronic Obstructive Pulmonary Disease (COPD): Yes Hx Pulmonary Embolism: Yes - HEENT Hx HEENT Problems: Yes - MUSCULOSKELETAL/RHEUMATOLOGICAL Hx Arthritis: Yes - GASTROINTESTINAL Hx Gastrointestinal Disorders: Yes Hx Colitis: Yes - GENITOURINARY/GYNECOLOGICAL Hx Genitourinary Disorders: Yes (SEE COMMENT) Hx Urinary Tract Infection: Yes Other/Comment: endometriosis sx; PID HX - PSYCHIATRIC Hx Anxiety: Yes Hx Post Traumatic Stress Disorder: Yes Hx Substance Use: No (''Past abuse of Xanax'') - SURGICAL HISTORY Hx Surgeries: Yes (SEE COMMENT) Other/Comment: endometriosis removed - ANESTHESIA Hx Anesthesia: Yes Hx Anesthesia Reactions: No Meds Allergies/Adverse Reactions: Allergies Allergy/AdvReac Type Severity Reaction Status Date / Time codeine Allergy Verified 09/15/17 08:28 doxycycline Allergy Verified 09/15/17 08:28 morphine Allergy Verified 09/15/17 08:28 Penicillins Allergy Verified 09/15/17 08:28 tetracycline Allergy Verified 09/15/17 08:28 steroids Allergy Uncoded 04/05/17 11:03 Physical Exam - Constitutional Appears: Well - Head Exam Head Exam: ATRAUMATIC, NORMAL INSPECTION, NORMOCEPHALIC - Eye Exam Eye Exam: EOMI, Normal appearance, PERRL Pupil Exam: NORMAL ACCOMODATION, PERRL - ENT Exam ENT Exam: Mucous Membranes Moist, Normal Exam - Neck Exam Neck exam: Positive for: Normal Inspection - Respiratory Exam Respiratory Exam: Decreased Breath Sounds - Cardiovascular Exam Cardiovascular Exam: REGULAR RHYTHM, +S1, +S2 - GI/Abdominal Exam GI & Abdominal Exam: Diminished Bowel Sounds, Soft - Rectal Exam Rectal Exam: Deferred Results - Vital Signs Recent Vital Signs: Last Vital Signs Temp 98.0 F 12/14/17 16:00 Pulse 64 12/14/17 16:01 Resp 20 12/14/17 16:00 BP 103/74 12/14/17 16:00 Pulse Ox 97 12/14/17 16:00 - Labs Result Diagrams: 12/16/17 10:54 12/16/17 10:54 Labs: Laboratory Results - last 24 hr 12/14/17 12/14/17 12/14/17 00:44 10:42 10:42 WBC 6.6 RBC 4.41 Hgb 13.4 Hct 39.3 MCV 89.1 MCH 30.3 MCHC 34.0 RDW 13.7 Plt Count 274 MPV 10.0 Neut % (Auto) 59.9 Lymph % (Auto) 31.1 [place] % (Auto) 6.8 Eos % (Auto) 1.9 Baso % (Auto) 0.3 Neut # (Auto) 4.0 Lymph # (Auto) 2.1 [place] # (Auto) 0.5 Eos # (Auto) 0.1 Baso # (Auto) 0.0 D-Dimer, Quantitative Sodium 139 Potassium 3.7 Chloride 104 Carbon Dioxide 24 Anion Gap 15 BUN 14 Creatinine 0.7 Est GFR ( Amer) > 60 Est GFR (Non-Af Amer) > 60 Random Glucose 144 H Calcium 9.0 Total Bilirubin 0.6 AST 16 ALT 31 Alkaline Phosphatase 62 Total Creatine Kinase 29 L 25 L CK-MB (Mass) 0.36 < 0.22 Troponin I < 0.0120 < 0.0120 Total Protein 6.7 Albumin 4.1 Globulin 2.6 Albumin/Globulin Ratio 1.6 Triglycerides 124 D Cholesterol 171 LDL Cholesterol Direct 100 HDL Cholesterol 39 TSH 3rd Generation 1.03 12/14/17 16:36 WBC RBC Hgb Hct MCV MCH MCHC RDW Plt Count MPV Neut % (Auto) Lymph % (Auto) [place] % (Auto) Eos % (Auto) Baso % (Auto) Neut # (Auto) Lymph # (Auto) [place] # (Auto) Eos # (Auto) Baso # (Auto) D-Dimer, Quantitative < 200 Sodium Potassium Chloride Carbon Dioxide Anion Gap BUN Creatinine Est GFR ( Amer) Est GFR (Non-Af Amer) Random Glucose Calcium Total Bilirubin AST ALT Alkaline Phosphatase Total Creatine Kinase CK-MB (Mass) Troponin I Total Protein Albumin Globulin Albumin/Globulin Ratio Triglycerides Cholesterol LDL Cholesterol Direct HDL Cholesterol TSH 3rd Generation Assessment & Plan - Assessment and Plan (Free Text) Plan: 7 year old female with a past medical history of COPD and depression who came to the emergency room after reporting chest tightness. Plan: 1.Chest pain r/o acs -EKG: Normal sinus rhythm @70bpm -Troponins (-)x3 -Cardiology (Dr. Nelson) consuled. Help appreciated. -Lipid panel ordered. Will f/u with results. -TSH ordered. Will f/u with results. -Aspirin 325mg PO Daily 2. Insomnia -Trazdone 200 mg PO HS 3. Anxiety -Xanax 1.5mg PO HS 4. Depression -Patient reports having multiple stressors in her life including her son not wanting to see her and increased pressure at work. -Paxil 40mg PO Daily PPX Lovenox 40mg SC Daily Protonix 40mg IVP Daily Heart Healthy diet Dispo: Awaiting Cardiology recommendations.
[2017-12-14 21:09] LABS: BARBITURATES, UR NEGATIVE (NEGATIVE); OPIATES, UR NEGATIVE (NEGATIVE); PHENCYCLIDINE, UR NEGATIVE (NEGATIVE)
[2017-12-14 21:17] LABS: BENZODIAZEPINES, UR POSITIVE (NEGATIVE)
--- NOTE | 2017-12-14 23:46 | CON ---
DATE: 12/14/2017 REASON FOR CONSULTATION: Chest pain. HISTORY OF PRESENT ILLNESS: The patient is a 47-year-old female who has history of posttraumatic stress syndrome, on Xanax and Paxil at home. She presented because of right-sided chest pain that is sharp, associated with right arm numbness. The patient denies any associated diaphoresis and is unaware of any prior cardiac history. SOCIAL HISTORY: The patient is a nonsmoker; however, she has COPD because of second-hand smoking. CURRENT MEDICATIONS: Aspirin 325 mg once a day, trazodone 200 mg at bedtime, Lovenox 40 mg subcutaneous once a day, Paxil 40 mg once a day, Protonix 40 mg once a day, Xanax 1.5 mg at bedtime. REVIEW OF SYSTEMS: No nausea or vomiting. No abdominal pain. No fever or chills. PHYSICAL EXAMINATION: GENERAL: The patient is a middle-aged female who does not appear to be in any distress. VITAL SIGNS: Blood pressure , heart rate 69, temperature 97.4, respiration 20. HEENT: Normocephalic. CHEST: Clear. HEART: S1 and S2 are regular. ABDOMEN: Soft. EXTREMITIES: No edema and no calf tenderness. LABORATORY DATA: Today's SMA-7 is within normal limits except for glucose of 144. Three sets of troponins are negative. Lipid profile is within normal limit. TSH level is within normal limit. Today's CBC is entirely within normal limit. PT, PTT and INR are within normal limit. EKG revealed normal sinus rhythm at a rate of 69. ASSESSMENT: 1. Chest pain. Myocardial infarction was ruled out. 2. Rule out pulmonary infarction. 3. Posttraumatic stress syndrome. RECOMMENDATIONS: Continue current aspirin, subcutaneous Lovenox and anti-depressants. Obtain stat D-dimer and urine for drug screen. Obtain venous Doppler of the lower extremities as well as echocardiographic study. Hosea Nelson MD
[2017-12-15] MEDS: Enoxaparin 40 mg Syringe SC SCH (10:22)
[2017-12-15] MEDS: Pantoprazole 40 mg EC Tab PO SCH (10:22)
[2017-12-15 11:01] LABS: BASO % 0.1 % (0.0-2.0); EOS # 0.1 K/uL (0.0-0.7); EOS % 1.1 % (0.0-4.0); HEMOGLOBIN 13.5 g/dL (11.0-16.0); LYMPH # 1.9 K/uL (1.0-4.3); LYMPH % 25.6 % (20.0-40.0); MEAN CORPUSCULAR HEMOGLOBIN 29.9 pg (27.0-31.0); MEAN CORPUSCULAR HGB CONC 33.6 g/dL (33.0-37.0); MEAN PLATELET VOLUME 9.9 fL (7.2-11.7); MONO # 0.5 K/uL (0.0-0.8); MONO % 6.6 % (0.0-10.0); NEUT # 4.9 K/uL (1.8-7.0); NEUT % 66.6 % (50.0-75.0); RBC 4.52 Mil/uL (3.80-5.20); RED CELL DISTRIBUTION WIDTH 13.2 % (11.5-14.5); WHITE BLOOD COUNT 7.3 K/uL (4.8-10.8)
[2017-12-15 11:15] LABS: ALB/GLOB RATIO 1.6 (1.0-2.1); ALBUMIN 4.2 g/dL (3.5-5.0); ALT/SGPT 32 U/L (9-52); AST/SGOT 18 U/L (14-36); BLOOD UREA NITROGEN 12 mg/dL (7-17); CALCIUM 9.1 mg/dl (8.6-10.4); GFR AFRICAN-AMERICAN > 60; GFR NON-AFRICAN AMERICAN > 60
--- NOTE | 2017-12-15 13:47 | CARD ---
APPROVED REPORT Date of service: 12/15/2017 EXAM: Two-dimensional and M-mode echocardiogram with Doppler and color Doppler. Other Information Quality : GoodRhythm : NSR INDICATION Chest Pain M-Mode DIMENSIONS RVDd1.70 (2.1-3.2cm)Left Atrium (MM)3.54 (2.5-4.0cm) IVSd0.96 (0.7-1.1cm)Aortic Root2.69 (2.2-3.7cm) LVDd5.27 (4.0-5.6cm)Aortic Cusp Exc.1.99 (1.5-2.0cm) PWd1.03 (0.7-1.1cm)FS (%) 40 % LVDs3.17 (2.0-3.8cm)LVEF (%)70 (>50%) Aortic Valve AoV Peak Nfpocdej989.1cm/Rivka Peak GR.6mmHg Mitral Valve MV E Dgwkubqz19.1cm/sMV A Mxgzbvmu37.0cm/sE/A ratio1.5 TDI E/Lateral E'0.0E/Medial E'0.0 Tricuspid Valve TR Peak Uiheewgm675lx/sTR Peak Gr.61zcEiWQPD70oeKb <Conclusion> normal size la,lv & ra rv. normal lv wall motion,thickness,systolic & diastolic function with lvef of 65-70%. normal aortic,mitral,tv & pv. mild pi,tr & trace mr with normal pulmonary systolic pressures of 30 mm of hg. normal ivc & aortic root. no pericardial effusiuon seen.
--- NOTE | 2017-12-15 18:09 | CP.PCM.PN ---
Subjective - Date & Time of Evaluation Date of Evaluation: 12/15/17 Time of Evaluation: 08:40 - Subjective Subjective: clinically same Objective - Vital Signs/Intake and Output Vital Signs (last 24 hours): Temp Pulse Resp BP Pulse Ox 98.5 F 64 20 108/73 96 12/15/17 15:00 12/15/17 15:59 12/15/17 15:00 12/15/17 15:00 12/15/17 15:00 - Medications Medications: Current Medications Acetaminophen (Tylenol 325mg Tab) 650 mg PO Q6 PRN PRN Reason: Pain, moderate (4-7) Last Admin: 12/15/17 10:21 Dose: 650 mg Alprazolam (Xanax) 1.5 mg PO HS [facility] Last Admin: 12/14/17 21:55 Dose: 1.5 mg Aspirin (Aspirin) 325 mg PO DAILY [facility] Last Admin: 12/15/17 10:21 Dose: 325 mg Enoxaparin Sodium (Lovenox) 40 mg SC DAILY [facility] Last Admin: 12/15/17 10:22 Dose: 40 mg Pantoprazole Sodium (Protonix Ec Tab) 40 mg PO DAILY [facility] Last Admin: 12/15/17 10:22 Dose: 40 mg Paroxetine HCl (Paxil) 40 mg PO DAILY [facility] Last Admin: 12/15/17 10:22 Dose: 40 mg Trazodone HCl (Desyrel) 200 mg PO [facility] Last Admin: 12/14/17 21:55 Dose: 200 mg - Labs Labs: 12/15/17 10:52 12/15/17 10:52 PT 11.8 SECONDS (9.7-12.2) 12/13/17 17:17 INR 1.1 12/13/17 17:17 APTT 31 SECONDS (21-34) 12/13/17 17:17 - Constitutional Appears: Well - Head Exam Head Exam: ATRAUMATIC, NORMAL INSPECTION, NORMOCEPHALIC - Eye Exam Eye Exam: EOMI, Normal appearance, PERRL Pupil Exam: NORMAL ACCOMODATION, PERRL - ENT Exam ENT Exam: Mucous Membranes Moist, Normal Exam - Neck Exam Neck Exam: Full ROM, Normal Inspection. absent: Lymphadenopathy - Respiratory Exam Respiratory Exam: Decreased Breath Sounds - Cardiovascular Exam Cardiovascular Exam: REGULAR RHYTHM, +S1, +S2 - GI/Abdominal Exam GI & Abdominal Exam: Soft, Diminished Bowel Sounds - Rectal Exam Rectal Exam: Deferred
--- NOTE | 2017-12-15 19:36 | PN ---
DATE: 12/15/2017 SUBJECTIVE: The patient is still experiencing right-sided sharp chest pain, which is steady. No shortness of breath. PHYSICAL EXAMINATION: VITAL SIGNS: Blood pressure , heart rate 62, temperature 98.1, and respirations 20. HEENT: Normocephalic. CHEST: Clear. HEART: S1 and S2 regular. EXTREMITIES: No edema or calf tenderness. LABORATORY DATA: Today's CBC is entirely within normal limit. Today's SMA-7 is entirely within normal limit. Urine drug screen is positive for cannabinoids and benzodiazepines. D-dimer is within normal limit. Venous Doppler of lower extremity, preliminary report, no evidence of DVT. Cervical spine CT scan, straightening of the normal lordosis, may be secondary to positioning/spasm. No acute fracture. Echocardiographic study, normal left ventricular size, wall thickness, systolic and diastolic function. ASSESSMENT: 1. Atypical chest discomfort. 2. stress syndrome. RECOMMENDATIONS: Continue current aspirin, Desyrel, subcutaneous Lovenox, and Xanax. Consider an outpatient treadmill stress testing. Hosea Nelson MD
[2017-12-16] MEDS: Pantoprazole 40 mg EC Tab PO SCH (09:30)
[2017-12-16] MEDS: Enoxaparin 40 mg Syringe SC SCH (09:31)
[2017-12-16 11:00] LABS: BASO % 0.5 % (0.0-2.0); EOS # 0.1 K/uL (0.0-0.7); EOS % 1.8 % (0.0-4.0); HEMOGLOBIN 13.4 g/dL (11.0-16.0); LYMPH % 28.3 % (20.0-40.0); MEAN CORPUSCULAR HEMOGLOBIN 30.1 pg (27.0-31.0); MEAN CORPUSCULAR HGB CONC 33.9 g/dL (33.0-37.0); MEAN PLATELET VOLUME 9.6 fL (7.2-11.7); MONO # 0.4 K/uL (0.0-0.8); MONO % 6.3 % (0.0-10.0); NEUT # 4.4 K/uL (1.8-7.0); NEUT % 63.1 % (50.0-75.0); RBC 4.44 Mil/uL (3.80-5.20); RED CELL DISTRIBUTION WIDTH 13.3 % (11.5-14.5)
[2017-12-16 11:51] LABS: ALB/GLOB RATIO 1.5 (1.0-2.1); ALBUMIN 3.9 g/dL (3.5-5.0); ALT/SGPT 23 U/L (9-52); AST/SGOT 21 U/L (14-36); BLOOD UREA NITROGEN 15 mg/dL (7-17); CALCIUM 8.9 mg/dl (8.6-10.4); GFR AFRICAN-AMERICAN > 60; GFR NON-AFRICAN AMERICAN > 60
--- NOTE | 2017-12-16 14:43 | CP.PCM.PN ---
Subjective - Date & Time of Evaluation Date of Evaluation: 12/16/17 Time of Evaluation: 09:40 - Subjective Subjective: clinically same Objective - Vital Signs/Intake and Output Vital Signs (last 24 hours): Temp Pulse Resp BP Pulse Ox 97.9 F 67 20 96/63 L 96 12/16/17 07:00 12/16/17 07:00 12/16/17 07:00 12/16/17 07:00 12/16/17 07:00 - Medications Medications: Current Medications Acetaminophen (Tylenol 325mg Tab) 650 mg PO Q6 PRN PRN Reason: Pain, moderate (4-7) Last Admin: 12/15/17 10:21 Dose: 650 mg Alprazolam (Xanax) 1.5 mg PO [facility] Last Admin: 12/15/17 21:01 Dose: 1.5 mg Aspirin (Aspirin) 325 mg PO DAILY [facility] Last Admin: 12/16/17 09:31 Dose: 325 mg Enoxaparin Sodium (Lovenox) 40 mg SC DAILY [facility] Last Admin: 12/16/17 09:31 Dose: 40 mg Pantoprazole Sodium (Protonix Ec Tab) 40 mg PO DAILY [facility] Last Admin: 12/16/17 09:30 Dose: 40 mg Paroxetine HCl (Paxil) 40 mg PO DAILY [facility] Last Admin: 12/16/17 09:30 Dose: 40 mg Trazodone HCl (Desyrel) 200 mg PO HS [facility] Last Admin: 12/15/17 21:01 Dose: 200 mg - Labs Labs: 12/16/17 10:54 12/16/17 10:54 PT 11.8 SECONDS (9.7-12.2) 12/13/17 17:17 INR 1.1 12/13/17 17:17 APTT 31 SECONDS (21-34) 12/13/17 17:17 - Constitutional Appears: Well - Head Exam Head Exam: ATRAUMATIC, NORMAL INSPECTION, NORMOCEPHALIC - Eye Exam Eye Exam: EOMI, Normal appearance, PERRL Pupil Exam: NORMAL ACCOMODATION, PERRL - ENT Exam ENT Exam: Mucous Membranes Moist, Normal Exam - Neck Exam Neck Exam: Full ROM, Normal Inspection. absent: Lymphadenopathy - Respiratory Exam Respiratory Exam: Decreased Breath Sounds - Cardiovascular Exam Cardiovascular Exam: REGULAR RHYTHM, +S1, +S2 - GI/Abdominal Exam GI & Abdominal Exam: Soft, Diminished Bowel Sounds - Rectal Exam Rectal Exam: Deferred
[2017-12-16 16:02] VITALS: BMI 31.4
--- NOTE | 2017-12-16 19:21 | PN ---
DATE: 12/16/2017 SUBJECTIVE: The patient denies any chest pain or shortness of breath. PHYSICAL EXAMINATION: VITAL SIGNS: Blood pressure 96/63, heart rate 67, temperature 97.9, and respirations 20. HEENT: Head normocephalic. CHEST: Clear. HEART: S1 and S2 regular. EXTREMITIES: No edema. LABORATORY DATA: Today's SMA-7 is entirely within normal limits. Today's CBC is entirely within normal limits. ASSESSMENT: Atypical chest pain, myocardial infarction is ruled out. RECOMMENDATIONS: Continue current aspirin and subcutaneous Lovenox . Consider an outpatient Lexiscan stress test. Hosea Nelson MD
[2017-12-17 07:38] VITALS: BP 95/64; RESP 20; TEMP 98; O2SAT 97
--- NOTE | 2017-12-17 08:23 | VASCLAB ---
Date of service: 12/15/2017 PROCEDURE: Lower Extremity Venous Duplex Exam. HISTORY: r/o DVT Right leg pain, Hx of [place] injury, Chest pain. PRIORS: None. TECHNIQUE: Bilateral common femoral, femoral, popliteal and posterior tibial, peroneal and great saphenous veins were evaluated. Flow was assessed with color Doppler, compressibility, assessment of phasic flow and augmentation response. Report prepared by Tramaine Gautam, RVT FINDINGS: RIGHT: 1. Common Femoral Vein: 1.1. Compressibility - Fully compressible: Thrombus - None : Flow - Phasic: Augmentation -Normal: Reflux - . 2. Femoral Vein: 2.1. Compressibility - Fully compressible: Thrombus - None : Flow - Phasic: Augmentation -Normal: Reflux - . 3. Popliteal Vein: 3.1. Compressibility - Fully compressible: Thrombus - None : Flow - Phasic: Augmentation -Normal: Reflux - . 4. Posterior Tibial Vein: 4.1. Compressibility - Fully compressible: Thrombus - None: Flow - : Augmentation -: Reflux - . 5. Peroneal Vein: 5.1. Compressibility - Fully compressible: Thrombus - None: Flow - : Augmentation -: Reflux - . 6. Great Saphenous Vein: 6.1. Compressibility - Fully compressible: Thrombus - None: Flow - Phasic: Augmentation - : Reflux - . LEFT: 1. Common Femoral Vein: 1.1. Compressibility - Fully compressible: Thrombus - None: Flow - Phasic: Augmentation -Normal: Reflux - . 2. Femoral Vein: 2.1. Compressibility - Fully compressible: Thrombus - None: Flow - Phasic: Augmentation -Normal: Reflux - . 3. Popliteal Vein: 3.1. Compressibility - Fully compressible: Thrombus - None : Flow - Phasic: Augmentation -Normal: Reflux - . 4. Posterior Tibial Vein: 4.1. Compressibility - Fully compressible: Thrombus - : Flow - : Augmentation -: Reflux - . 5. Peroneal Vein: 5.1. Compressibility - Fully compressible: Thrombus - : Flow - : Augmentation -: Reflux - . 6. Great Saphenous Vein: 6.1. Compressibility - Fully compressible: Thrombus - None: Flow - Phasic: Augmentation - : Reflux - . OTHER FINDINGS: Right: None significant. Left: None significant. IMPRESSION: Right: No evidence of deep or superficial vein thrombosis of the right lower extremity. Left: No evidence of deep or superficial vein thrombosis of the left lower extremity.
[2017-12-17] MEDS: Enoxaparin 40 mg Syringe SC SCH (10:44)
[2017-12-17] MEDS: Pantoprazole 40 mg EC Tab PO SCH (10:44)
--- NOTE | 2017-12-17 10:54 | CP.PCM.PN ---
Subjective - Date & Time of Evaluation Date of Evaluation: 12/17/17 Time of Evaluation: 10:51 - Subjective Subjective: PGY-[address] Dianne Sawyer's Service Patient seen and examined at bedside. Per nursing no acute events occurred overnight. Patient tolerating diet with no complaints and passing bowels. Patient does admit to right knee pain after ambulation for long periods of time. Patient denies any chest pain, fevers, chills, nausea, vomiting, syncopal episodes, headaches, dizziness, or any other complaints. Objective - Vital Signs/Intake and Output Vital Signs (last 24 hours): Temp Pulse Resp BP Pulse Ox 98.0 F 55 L 20 95/64 L 97 12/17/17 07:00 12/17/17 07:54 12/17/17 07:00 12/17/17 07:00 12/17/17 07:52 Intake and Output: 12/17/17 12/17/17 06:59 18:59 Intake Total 500 Balance 500 - Medications Medications: Current Medications Acetaminophen (Tylenol 325mg Tab) 650 mg PO Q6 PRN PRN Reason: Pain, moderate (4-7) Last Admin: 12/16/17 21:48 Dose: 650 mg Alprazolam (Xanax) 1.5 mg PO HS [facility] Last Admin: 12/16/17 21:49 Dose: 1.5 mg Aspirin (Aspirin) 325 mg PO DAILY [facility] Last Admin: 12/17/17 10:44 Dose: 325 mg Enoxaparin Sodium (Lovenox) 40 mg SC DAILY [facility] Last Admin: 12/17/17 10:44 Dose: 40 mg Pantoprazole Sodium (Protonix Ec Tab) 40 mg PO DAILY [facility] Last Admin: 12/17/17 10:44 Dose: 40 mg Paroxetine HCl (Paxil) 40 mg PO DAILY [facility] Last Admin: 12/17/17 10:44 Dose: 40 mg Trazodone HCl (Desyrel) 200 mg PO HS [facility] Last Admin: 12/16/17 21:48 Dose: 200 mg - Labs Labs: 12/16/17 10:54 12/16/17 10:54 PT 11.8 SECONDS (9.7-12.2) 12/13/17 17:17 INR 1.1 12/13/17 17:17 APTT 31 SECONDS (21-34) 12/13/17 17:17 - Head Exam Head Exam: ATRAUMATIC, NORMAL INSPECTION, NORMOCEPHALIC - ENT Exam ENT Exam: Mucous Membranes Moist, Normal Exam, Normal Oropharynx - Neck Exam Neck Exam: Normal Inspection. absent: Lymphadenopathy, Thyromegaly - Respiratory Exam Respiratory Exam: Clear to Ausculation Bilateral, NORMAL BREATHING PATTERN - Cardiovascular Exam Cardiovascular Exam: REGULAR RHYTHM, +S1, +S2 - GI/Abdominal Exam GI & Abdominal Exam: Soft, Normal Bowel Sounds. absent: Hyperactive Bowel Sounds - Neurological Exam Neurological Exam: Alert, Awake, Oriented x3 - Psychiatric Exam Psychiatric exam: Normal Affect, Normal Mood - Skin Skin Exam: Dry, Intact, Normal Color. absent: Diaphoretic, Pallor, Pallor Assessment and Plan - Assessment and Plan (Free Text) Assessment: 47 year old female with a past medical history of COPD and depression who came to the emergency room after reporting chest tightness. Plan: 1.Chest pain r/o acs -EKG: Normal sinus rhythm @70bpm -Troponins (-)x3 -Cardiology (Dr. Nelson) consulted -Per Cardiology: continue Aspirin and subcutaneous Lovenox, Outpatient Lexiscan -Lipid panel :Triglycerides-124 :Cholesterol- 171 :LDL-100 :HDL-39 -TSH 1.03 -Aspirin 325mg PO Daily 2. Insomnia -Trazdone 200 mg PO HS 3. Anxiety -Xanax 1.5mg PO HS 4. Depression -Patient reports having multiple stressors in her life including her son not wanting to see her and increased pressure at work. -Paxil 40mg PO Daily PPX Lovenox 40mg SC Daily Protonix 40mg IVP Daily Heart Healthy diet Dispo: Patient cleared for discharge home. Plan and management discussed with Dr. Dianne Sawyer. Chip Velásquez, PGY-2 Discharge Instructions: 1. Patient should follow up with Dr. Dianne Sawyer in his office(Appointment 12/19/17) within 5 to 7 days upon discharge. 2. Advised patient to follow up with Dr. Nelson for Outpatient Lexiscan. 3. Advised patient to return to hospital for any new or worsening symptoms. 4.Patient provided work note upon discharge. Medicatons: 1. Aspirin 81mg PO Daily, #30, No refills.
[2017-12-17 14:39] VITALS: PULSE 63
--- NOTE | 2017-12-17 14:53 | MRI ---
Date of service: 12/17/2017 PROCEDURE: MRI Right Knee HISTORY: Right knee pain and swelling COMPARISON: None available. TECHNIQUE: Multiecho multiplanar sequences were performed through the right knee. FINDINGS: ANTERIOR CRUCIATE LIGAMENT:: There is partial-thickness tear at the proximal portion of the ACL. POSTERIOR CRUCIATE LIGAMENT:: Intact. MEDIAL MENISCUS:: Complex tear involving the posterior horn of the medial meniscus is noted. LATERAL MENISCUS:: Intact. MEDIAL COLLATERAL LIGAMENT:: Mild grade 1-2 sprain noted at the medial collateral ligament. LATERAL COLLATERAL LIGAMENT COMPLEX:: [id number] grade 2 lateral collateral ligament sprain noted. QUADRICEPS TENDON:: The quadriceps tendon is intact without evidence of significant abnormal changes. PATELLAR TENDON:: Heterogeneous abnormal increased signal noted at the proximal portion of the patellar tendon suggestive of tendinopathy CARTILAGE:: Mild patellar chondromalacia noted more prominent at the medial aspect of the patella. Small foci of cartilage defects in the femoral condyles. JOINT FLUID:: Small joint effusions. OSSEOUS STRUCTURES:: Intact. OTHER FINDINGS: None. IMPRESSION: Medial meniscus posterior horn complex tear. Partial thickness tear at the proximal portion of the ACL. Small joint effusion. Moderate lateral and [id number] medial collateral ligament sprain. [id number] proximal patellar tendinopathy.
== END 2017-12-17 15:35 | disposition home or self-care (01) ==
LOC: C.ER 16:11 → C.9E 18:12 → C.5S 20:32
PROVIDERS: ADMIT Internal Medicine Nephrology; ATTEND Internal Medicine Nephrology
DX: R07.89 Other chest pain (principal); J44.9 Chronic obstructive pulmonary disease, unspecified; F43.10 Post-traumatic stress disorder, unspecified; K21.9 Gastro-esophageal reflux disease without esophagitis; M19.90 Unspecified osteoarthritis, unspecified site; Z86.711 Personal history of pulmonary embolism; Z87.440 Personal history of urinary (tract) infections
CPT/HCPCS: 36415; 71046; 72040; 73721; 80053; 80061; 80324; 80345; 80346; 80349; 80353; 80358; 80361; 81001; 83992; 84443; 84484; 84703; 85025; 85378; 85610; 85730; 93005; 93306; 93970; 96374; 99284; G0378; J1650; J2060